=== PATIENT | female | born 1940 | race Caucasian/White ===

== ENCOUNTER 2024-12-01 20:29 | Inpatient (IN) | payer OTHER ==
[~2024-12-01] VITALS: Ht 165.1 cm; Wt 68.0 kg
[2024-12-01] MEDS ORDERED: ONDANSETRON 4 MG/2 ML VIAL ONE (21:02)
[2024-12-01] MEDS: IV NORMAL SALINE 500 ML BAG IV ONE (21:04)
[2024-12-01] MEDS: ONDANSETRON 4 MG/2 ML VIAL IV ONE (21:04)
[2024-12-01 21:10] LABS: PLATELET COUNT (AUTO) 285 K/uL (179-408); RED BLOOD CELL COUNT(AUTO) 4.03 MIL/uL (3.63-4.92); RED CELL DISTRIBUTION WIDTH 15.1 % (12.3-17.7); WHITE BLOOD COUNT (AUTO) 8.0 K/uL (3.8-11.8)
[2024-12-01 21:18] LABS: CREATININE 1.0 mg/dL (0.6-1.3); SODIUM SERUM 139 mmol/L (136-145); UREA NITROGEN, BLOOD 17 mg/dL (7-18)
[2024-12-01 21:24] LABS: ASPARTATE AMINOTRANSFERASE 12 U/L (15-37); TOTAL PROTEIN, SERUM 6.5 g/dL (6.4-8.2)
[2024-12-01 21:34] LABS: *BILIRUBIN,URIN NEGATIVE (NEGATIVE); *BLOOD, URINE 1+ (NEGATIVE); *CLARITY,URINE CLEAR (CLEAR); *COLOR,URINE YELLOW (YELLOW); *KETONES,URINE NEGATIVE (NEGATIVE); *PROTEIN,URINE NEGATIVE (NEGATIVE); *UROBILINOGEN,URINE 0.2 E.U./dl (NORMAL); LEUKOCYTE ESTERASE ,URINE 3+ (NEGATIVE); NITRITE, URINE NEGATIVE (NEGATIVE); UGLUCOSE NEGATIVE (NEGATIVE)
[2024-12-01] MEDS: CEFTRIAXONE 1 G in IV DEXTROSE 5% 50 ML IV ONE (22:10)
[2024-12-01] MEDS ORDERED: CARB-35 PO (23:03)
[2024-12-01] MEDS ORDERED: MEMA10TA PO (23:03)
[2024-12-01] MEDS ORDERED: ASPI81TA31 PO (23:03)
[2024-12-02] VITALS (9 sets, daily range): BP systolic 100–141; BP diastolic 23–79; TEMP 97.6–98.8; O2SAT 94–96
[2024-12-02] MEDS ORDERED: ONDANSETRON 4 MG/2 ML VIAL IV PRN (00:30)
[2024-12-02] MEDS ORDERED: REMEDY ESSENTIAL ZINC PASTE 113 GM TP PRN (00:30)
[2024-12-02] MEDS ORDERED: ACETAMINOPHEN 325 MG TABLET PO PRN (00:30)
[2024-12-02] MEDS ORDERED: MAGNESIUM HYDROXIDE 30 ML LIQUID UDC PO PRN (00:30)
[2024-12-02] MEDS: ENOXAPARIN SODIUM 40 MG/0.4 ML DISP.SYRIN SQ SCH (02:19)
[2024-12-02] MEDS: PANTOPRAZOLE SODIUM 40 MG TABLET.DR PO SCH (06:28)
[2024-12-02] MEDS ORDERED: BUME1TAB8 PO (10:03)
[2024-12-02] MEDS ORDERED: RIVA10TA PO (10:04)
[2024-12-02] MEDS ORDERED: CARB1TAB21 PO (10:05)
[2024-12-02] MEDS: ASPIRIN 81 MG TAB.CHEW PO SCH (14:12)
[2024-12-02] MEDS: CARBIDOPA/LEVODOPA 25-100MG TABLET PO SCH (16:52)
[2024-12-02] MEDS: MEMANTINE HCL 10 MG TABLET PO SCH (16:52)
[2024-12-02] MEDS: CEFTRIAXONE 1 G in IV DEXTROSE 5% 50 ML IV SCH (22:19)
[2024-12-03 04:00] VITALS: BP 127/59; TEMP 97.9; O2SAT 96
[2024-12-03 06:55] LABS: PLATELET COUNT (AUTO) 255 K/uL (179-408); RED BLOOD CELL COUNT(AUTO) 4.05 MIL/uL (3.63-4.92); RED CELL DISTRIBUTION WIDTH 15.4 % (12.3-17.7); WHITE BLOOD COUNT (AUTO) 7.5 K/uL (3.8-11.8)
[2024-12-03 07:18] LABS: CREATININE 0.8 mg/dL (0.6-1.3); SODIUM SERUM 144 mmol/L (136-145); UREA NITROGEN, BLOOD 11 mg/dL (7-18)
[2024-12-03 11:33] VITALS: BP 131/93; TEMP 97.8; O2SAT 96
[2024-12-03 15:45] VITALS: BP 108/55; TEMP 97.9; O2SAT 94
[2024-12-03 23:18] VITALS: BP 106/47; TEMP 98; O2SAT 96
[2024-12-04 05:42] VITALS: BP 113/55; TEMP 98.3; O2SAT 97
[2024-12-04 06:40] LABS: PLATELET COUNT (AUTO) 263 K/uL (179-408); RED BLOOD CELL COUNT(AUTO) 3.98 MIL/uL (3.63-4.92); RED CELL DISTRIBUTION WIDTH 15.1 % (12.3-17.7); WHITE BLOOD COUNT (AUTO) 8.5 K/uL (3.8-11.8)
[2024-12-04 06:55] LABS: CREATININE 0.7 mg/dL (0.6-1.3); SODIUM SERUM 143 mmol/L (136-145); UREA NITROGEN, BLOOD 10 mg/dL (7-18)
[2024-12-04 11:10] VITALS: BP 138/73; TEMP 97; O2SAT 97
[2024-12-04 16:07] VITALS: BP 121/62; TEMP 97.4; O2SAT 94
[2024-12-04 19:23] VITALS: BP 127/61; TEMP 97.9; O2SAT 93
[2024-12-05 05:44] VITALS: BP 114/56; TEMP 97.9; O2SAT 96
[2024-12-05] MEDS ORDERED: CEPH500T PO (08:50)
[2024-12-05] MEDS ORDERED: CEPH500C2 PO (08:50)
[2024-12-05 12:00] VITALS: BP 147/67; TEMP 97.7; O2SAT 97
== END 2024-12-05 13:40 | disposition home health service (06) | DRG 73 ==
LOC: ER 20:29 → TELE3 12-02 00:25 → MEDSURG3 12-02 09:00
PROVIDERS: ADMIT Student in an Organized Health Care Education/Training Program; ATTEND Nurse Practitioner Family
DX: G90.9 Disorder of the autonomic nervous system, unspecified (principal); G93.41 Metabolic encephalopathy; I50.30 Unspecified diastolic (congestive) heart failure; N39.0 Urinary tract infection, site not specified; R55 Syncope and collapse; E86.0 Dehydration; G20.A1 Parkinson's disease without dyskinesia, without mention of fluctuations; F02.80 Dementia in other diseases classified elsewhere, unspecified severity, without behavioral disturbance, psychotic disturbance, mood disturbance, and anxiety; E88.09 Other disorders of plasma-protein metabolism, not elsewhere classified; R94.31 Abnormal electrocardiogram [ECG] [EKG]; I11.0 Hypertensive heart disease with heart failure; Z66 Do not resuscitate
CPT/HCPCS: 36415; 71045; 83735; 84100; 84443; 84484; 85025; 87040; 87086; 93307; 93880; G0378; J0696; J1650; J2405; J7040